=== PATIENT | female | born 1965 | race Caucasian/White ===

== ENCOUNTER 2017-10-12 11:39 | Day surgery (SDC) | payer BC ==
[2017-10-12] MEDS ORDERED: PROPOFOL 20 ML (14:31)
[2017-10-12] MEDS ORDERED: FENTAnyl 50 MCG/ML VIAL (14:31)
== END 2017-10-12 18:06 | disposition home or self-care (01) ==
LOC: GIL 11:39
DX: Z12.11 Encounter for screening for malignant neoplasm of colon (principal); K64.8 Other hemorrhoids; M81.0 Age-related osteoporosis without current pathological fracture; Z87.891 Personal history of nicotine dependence
CPT/HCPCS: 45378; 84703

== ENCOUNTER 2018-04-17 06:20 | Day surgery (SDC) | payer BC ==
[2018-04-17] MEDS ORDERED: CEFAZOLIN 2 GM/50 ML (PMX) 50 ML IVPB (07:00)
[2018-04-17] MEDS ORDERED: SEVOFLURANE 15 MIN (07:00)
[2018-04-17] MEDS ORDERED: SOD CHLORIDE 0.9% 1,000 ML IV (07:00)
[2018-04-17] MEDS ORDERED: POLYMYXIN/BACITRACIN 1L IRRIG (09:06)
[2018-04-17] MEDS ORDERED: FENTAnyl 50 MCG/ML VIAL (09:27)
[2018-04-17] MEDS ORDERED: MIDAZOLAM 1 MG/ML 2 ML INJ (09:27)
[2018-04-17] MEDS: BUPIVACAINE 0.5%/EPI (SDV) 30 ML INJ (10:22)
[2018-04-17] MEDS ORDERED: LIDOCAINE 2% (SDV) 5 ML INJ (10:23)
[2018-04-17] MEDS ORDERED: ROCURONIUM 50 MG INJ (10:23)
[2018-04-17] MEDS ORDERED: PROPOFOL 20 ML (10:23)
[2018-04-17] MEDS ORDERED: CEFAZOLIN 1 GM INJ (10:23)
[2018-04-17] MEDS ORDERED: NEOSTIGMINE 3 MG/3 ML SYRINGE (10:25)
[2018-04-17] MEDS ORDERED: GLYCOPYRROLATE 0.4 MG INJ (10:25)
[2018-04-17] MEDS ORDERED: ONDANSETRON 4 MG INJ (10:28)
[2018-04-17] MEDS ORDERED: HYDROCODONE/APAP (5/325) TAB PO (10:30)
[2018-04-17] MEDS ORDERED: IBUPROFEN 600 MG TAB PO (10:30)
[2018-04-17] MEDS ORDERED: KETOROLAC 30 MG INJ IV (10:30)
[2018-04-17] MEDS ORDERED: ONDANSETRON 4 MG INJ IV ×2 (10:30→11:00)
[2018-04-17] MEDS ORDERED: HYDROmorphONE 1 MG/5 ML IV SYRINGE IV ×2 (11:00)
[2018-04-17] MEDS ORDERED: METOCLOPRAMIDE 10 MG INJ IV (11:00)
[2018-04-17] MEDS ORDERED: FENTAnyl 50 MCG/ML VIAL IV (11:00)
[2018-04-17] MEDS ORDERED: MEPERIDINE 25 MG INJ IV (11:00)
[2018-04-17] MEDS ORDERED: DIPHENHYDRAMINE 50 MG INJ IV (11:00)
[2018-04-17] MEDS: HYDROCODONE/APAP (5/325) TAB PO (12:08)
== END 2018-04-17 12:32 | disposition home or self-care (01) ==
LOC: SDS 06:20
DX: K42.9 Umbilical hernia without obstruction or gangrene (principal)
CPT/HCPCS: 49585; 71045; 84702; 84703